=== PATIENT | male | born 1985 | race Caucasian/White ===

== ENCOUNTER 2017-10-16 20:31 | Emergency (ER) | payer MEDICAID, SELFPAY ==
[2017-10-16 20:33] VITALS: BP 120/86; PULSE 111; RESP 14; TEMP 36.5; O2SAT 98; BMI 22.9
--- NOTE | 2017-10-16 20:46 | ED.RN ---
PER PT REQUEST THIS RN CALLED PT GRANDMOTHER. THERE WAS NO ANSWER TO PHONE CALL. WILL TRY AGAIN LATER.
[2017-10-16 21:33] VITALS: BP 120/87; PULSE 91; RESP 17; O2SAT 95
[2017-10-16 22:31] VITALS: BP 115/83; PULSE 76; RESP 14; O2SAT 93
[2017-10-16 23:08] VITALS: BP 110/80; PULSE 84; RESP 20; O2SAT 97
--- NOTE | 2017-10-16 23:18 | ED.VISSUMM ---
- ER Visit Summary Date of Service: 10/16/17 Chief Complaint: Overdose History of Present Illness: The patient is a 32 M who was brought in by EMS. Medics report they were bagging the patient. He was given 1 mg of Narcan and is awake and alert. Patient admits to drug abuse. He thought he was just using meth. He does not remember if he got his drugs from a different supplier. He does have a history of heroin use but states he has not used heroin in several years. Physical Examination: Vital signs significant for slight tachycardia with heart rate of 111, otherwise normal. Patient sitting upright in bed. He will intermittently start to fall asleep during my exam but he easily awakens just to voice. Heart is slightly tachycardic and regular. Lung sounds are clear. Abdomen is soft nontender. Patient is moving all 4 extremities. Test Results: [] Emergency Department Course and Treatment: Patient was observed for 3 hours. He remained stable with no further doses of Narcan required. Respiratory rate has maintained at a normal level throughout. At this time patient is tolerating p.o. He will be given information for 180 for detox should he choose this. Treatment Plan: [] Disposition: Discharge Impression: Opioid overdose This note was generated with AllClear ID dictation software. It may contain incorrect words, spelling, and punctuation that were not noted in review of the chart prior to signing ED Disposition - Plan for ED Patient: Chief Complaint: Overdose Referrals: Care Physician,No Primary [Primary Care Provider] -
--- NOTE | 2017-10-16 23:20 | ED.DEP ---
ED Disposition - Plan for ED Patient: Disposition: Home or Assisted Living Chief Complaint: Overdose Instructions: ED Overdose Opiate Referrals: EIGHTY,ONE [STAFF PHYSICIAN] - As Needed
[2017-10-16 23:29] VITALS: BP 111/86; PULSE 98; RESP 20; O2SAT 97
--- NOTE | 2017-10-16 23:30 | ED.RN ---
PT EDUCATED THAT DRUG USE IS UNSAFE. A+OX4. PT GIVEN VERBAL AND WRITTEN D.C INSTRUCTIONS. PT VERBALIZES UNDERSTANDING. DENIES ANY FURTHER QUESTIONS. PT IV D/C AND OVERED WITH 2X2 GAUZE DRESSING AND PAPER TAPE. PT AMBULATES OUT OF DEPT WITHOUT ASSISTANCE FROM STAFF.
== END 2017-10-16 23:31 | disposition home or self-care (01) ==
PROVIDERS: Emergency Provider Emergency Medicine
DX: T40.3X1A Poisoning by methadone, accidental (unintentional), initial encounter (principal); Y92.9 Unspecified place or not applicable; Z72.0 Tobacco use
CPT/HCPCS: 99285

== ENCOUNTER 2018-09-19 15:22 | Emergency (ER) | payer SELFPAY ==
[2018-09-19 15:23] VITALS: BP 129/90; PULSE 100; RESP 18; TEMP 36.5; O2SAT 96; BMI 22.5
--- NOTE | 2018-09-19 15:31 | ED.DCSUM_ITS ---
- ER Visit Summary Date of Service: 09/19/18 Chief Complaint: [Possible drug overdose ] History of Present Illness: The patient is a 33 M [presents to the emergency department via EMS after his friends called and stated that he was not breathing. Initially on EMS arrival patient was coherent however became unresponsive and was given a milligram of Narcan after which time he immediately became responsive again. Patient was at a known drug house per EMS. Patient has used heroin in the past but he states he does not remember using anything today. Patient states that he has been feeling fatigued and tired all day. He denies recent illness although at times he is felt hot. He denies any chest pain or abdominal pain. Patient has no medical history. Patient has no prior surgical history.] Patient not suicidal or homicidal. Physical Examination: [HEENT-PERRLA, EOMI. Cranial nerves II through XII grossly intact. TMs clear. Mucous membranes moist. No adenopathy. Cardiovascular-regular rate and rhythm without murmur or ectopy Lungs-clear to auscultation, chest wall stable without crepitus or subcu emphysema Abdomen-normoactive bowel sounds, soft, nontender, no rebound or rigidity, no peritoneal signs. Extremities-intact ?4, normal range of motion, normal pulses, atraumatic] Test Results: [CBC with differential was unremarkable. Chemistries unremarkable. Alcohol toxicology screen pending however patient refused to give a urine sample. Patient is requesting discharge to home.] Patient currently does not want to go through detox. Emergency Department Course and Treatment: [Patient was observed for over an hour at this point he is requesting his discharge.] Treatment Plan: [I recommended follow-up with steps however patient left prior to getting his discharge instructions.] Disposition: [Discharged home stable condition] Impression: [Opiate overdose] This note was generated with [employer]ured [employer] dictation software. It may contain incorrect words, spelling, and punctuation that were not noted in review of the chart prior to signing ED Disposition - Plan for ED Patient: Referrals: Care Physician,No Primary [Primary Care Provider] -
[2018-09-19] MEDS: 0.9% Normal Saline 1,000 ML 1000 ML IV (15:32)
[2018-09-19 15:51] LABS: Absolute Lymphocyte Count 2.48 X10^3/ul (0.83-4.51); Absolute Neutrophil Count 3.7 X10^3/uL (2.0-7.7); Basophil# 0.03 X10^3/uL; Basophil% 0.4 % (0-1); Eosinophil# 0.11 X10^3/uL; Eosinophils% 1.5 % (0-5); Hematocrit 40.8 % (40-54); Hemoglobin 13.9 g/dl (13.0-16.5); Lymphocyte # 2.48 X10^3/ul (4.0); Lymphocyte % 34.3 % (19-41); Mean Corp Hgb Conc 34.1 g/gl (32-36); Mean Corpuscular Volume 87.9 fL (80-94); Mean Platelet Vol. 9.1 fl (6.2-12.0); Monocyte# 0.88 X10^3/uL; Monocyte% 12.2 % (0-10); Neutrophil # 3.71 X10^3/uL (2.7-7.7); Neutrophil % 51.5 % (47-70); Platelet Count 315 K/mm3 (150-450); RBC Distribution Width CV 13.2 % (11.6-14.6); RBC Distribution Width SD 42.3 fl (35.1-43.9); Red Blood Count 4.64 M/mm3 (4.6-6.2); White Blood Count 7.2 K/mm3 (4.4-11.0)
[2018-09-19 15:58] LABS: Anion Gap 3 (5-15); BUN 18 mg/dL (7-18); BUN/Creat Ratio 20.7 RATIO (10-20); Calcium,Total 8.3 mg/dL (8.5-10.1); Chloride 105 mmol/L (98-107); Creatinine, Serum 0.87 mg/dL (0.70-1.30); EST Glomerular Filtration Rate 106 mL/min (>60); Est Glom Filt Rate - Afr Amer 129 mL/min (>60); Glucose 90 mg/dL (74-106); Potassium 4.9 mmol/L (3.5-5.1); Sodium Level 138 mmol/L (136-145)
--- NOTE | 2018-09-19 16:03 | ED.RN ---
attempted to call sister, Roseanna, per pt's request. no answer at this time.
[2018-09-19 16:10] LABS: POSITIVE COUNT NO; POSITIVE DIFFERENTIAL NO; POSITIVE MORPHOLOGY NO
[2018-09-19 16:11] VITALS: RESP 16; O2SAT 99
--- NOTE | 2018-09-19 16:26 | ED.DEP ---
ED Disposition - Plan for ED Patient: Instructions: Opiate Abuse, OVERDOSE, Opiate Referrals: Care Physician,No Primary [Primary Care Provider] - Additional Instructions: Follow up with [facility] for drug rehab
--- NOTE | 2018-09-19 16:27 | ED.RN ---
friend asked for number for detox. pt cooperative at dc but left before waiting for paperwork.
== END 2018-09-19 16:30 | disposition home or self-care (01) ==
LOC: ED 16:24
PROVIDERS: Emergency Provider Emergency Medicine
DX: T40.601A Poisoning by unspecified narcotics, accidental (unintentional), initial encounter (principal); Z72.0 Tobacco use
CPT/HCPCS: 80048; 80320; 85025; 96360; 99285; G0480

== ENCOUNTER 2018-09-23 07:47 | Emergency (ER) | payer SELFPAY ==
[2018-09-23 07:48] VITALS: BP 148/81; PULSE 125; RESP 21; TEMP 36.8; O2SAT 99; BMI 23.0
--- NOTE | 2018-09-23 08:12 | ED.VIS.GEN ---
History of Present Illness Chief Complaint: Substance Abuse Informant: Patient Onset: Today Timing: Continuous Current Severity: Mild Maximum Severity: Mild Narrative: Patient is here for detox from opiates. He was seen a few days ago for an overdose from heroin, he used this morning and has minimal withdrawal symptoms. He is complaining of mild sweating, he feels slightly hot and has very few muscle aches. He has no nausea or vomiting. He has no anxiety. He has no chest pain shortness of breath headaches. Past Medical History - Allergies and Home Meds Allergies/Adverse Reactions: Allergies No Known Allergies Allergy (Verified 10/16/17 20:32) Primary Care Physician: Care Physician,No Primary [Primary Care Provider] - Prior records reviewed: Yes Past Medical History: None Smoking Status: Current every day smoker Drugs: Heroin Review of Systems General: Denies: Chills, Fever, Sweats Eyes: Reports: Diplopia. Denies: Visual changes - bilaterally ENT: Denies: Rhinorrhea, Sore throat Cardiovascular: Denies: Chest pain, Palpitations Respiratory: Denies: Dyspnea, Cough, Dyspnea on exertion Gastrointestinal: Denies: Abdominal pain, Nausea, Vomiting, Diarrhea, Melena, Hematochezia Genitourinary: Denies: Dysuria, Hematuria, Frequency Musculoskeletal: Denies: Back pain, Extremity Pain Skin: Denies: Rash, Wounds Neurological: Denies: Headache, Weakness, Numbness Allergy: Denies: Swelling of the mouth Physical Exam Vital Signs/Narrative: Vital Signs Temp Pulse Resp BP Pulse Ox 09/23/18 07:48 98.2 F 125 H 21 H 148/81 H 99 Inital Vital Signs reviewed: Yes General: Well nourished Head: Normocephalic Eyes: Perrl ENT: Moist mucous membranes Neck: Supple Cardiovascular: Regular rate, Regular rhythm, No murmurs Respiratory: No distress Abdomen: Soft, Nontender Back: Nontender, Normal Inspection Extremities: Nontender, - - Old track espinoza seen bilateral upper extremities no signs of infection Skin: Normal color, No rash Neurological: Alert, Oriented x3, Cranial nerves II-XII grossly intact Psychological: Normal affect, Normal Mood Diagnostic/Tx/Re-eval - Medical Decision Making Patient's CINA scale for withdrawal symptoms as a 5, unfortunately he does not meet criteria for detox. I discussed the patient with [facility], patient can be seen outpatient. I will discharge him with the information. ED Disposition - Plan for ED Patient: Disposition: Home or Assisted Living Diagnosis: Opiate abuse, continuous Instructions: Opiate Abuse, Narcotic Withdrawal Additional Instructions: Follow-up with [facility]: Call them, they can see later today in the outpatient office.
--- NOTE | 2018-09-23 08:27 | ED.RN ---
PT AGITATED UPON ARRIVAL. PT STATES DIDN'T WANT TO STAY FOR OPIATE DETOX UNLESS FIMATT WAS WITH HIM. [facility] IN TRIAGE AREA AND PT LEAVE UNIT THINKING [facility] LEFT HOSPITAL. [facility] RETURNED AND PT RETURNED TO PT ROOM. PHYSICIAN SAW PT AND BEGAN TO PREPARE DC. PT LEAVE UNIT AGAIN, BECAME AGITATED THAT RADHA WAS NOT IN ROOM WITH HIM. PT LEAVE PRIOR TO RECEIVING DC INSTRUCTIONS THAT INCLUDED [facility] PROGRAM INSTRUCTIONS AND REFERRAL.
== END 2018-09-23 08:27 | disposition home or self-care (01) ==
LOC: ED 08:26
PROVIDERS: Emergency Provider Emergency Medicine
DX: F11.10 Opioid abuse, uncomplicated (principal); F17.200 Nicotine dependence, unspecified, uncomplicated
CPT/HCPCS: 99282

== ENCOUNTER 2019-03-13 07:57 | Observation (INO) | payer MEDICAID, SELFPAY ==
[2019-03-13 07:58] VITALS: BP 131/103; PULSE 93; RESP 17; TEMP 36.1; O2SAT 99; BMI 23.6
--- NOTE | 2019-03-13 08:07 | EKG12_ITS ---
Test Reason : SUBSTANCE ABUSE Blood Pressure : / mmHG Vent. Rate : 095 BPM Atrial Rate : 095 BPM P-R Int : 158 ms QRS Dur : 108 ms QT Int : 362 ms P-R-T Axes : 057 055 041 degrees QTc Int : 454 ms Normal sinus rhythm Normal ECG Confirmed by YURIY FARIA, MARILIN ([id number]), commissioning editor FLAKO URIOSTEGUI ([id number]) on 03/17/2019 12:25:04 PM Referred By: FABIEN Confirmed By:MARILIN YAN MD
--- NOTE | 2019-03-13 08:08 | ED.DCSUM_ITS ---
History of Present Illness Chief Complaint: Substance Abuse Informant: Patient Onset: Today Narrative: Patient presents emergency department asking for help with his heroin addiction. Patient states he typically uses 1 g of heroin/fentanyl a day. He states he injects in the right arm. Last use was approximately 24 hours ago. He notes nausea vomiting diarrhea, chills, headache, and irritability. He denies any hallucinations. He denies any significant alcohol use. He last overdosed approximately 3 months ago. He states he is never gone through rehab but did go through withdrawals a couple months ago when he was in [facility]. He denies any pending legal issues. He denies suicidal homicidal ideation. When asked why he is looking for rehab today he states that he is just sick of it. Past Medical History - Allergies and Home Meds Allergies/Adverse Reactions: Allergies No Known Allergies Allergy (Verified 03/13/19 07:58) Primary Care Physician: Care Physician,No Primary [Primary Care Provider] - Smoking Status: Current every day smoker Review of Systems General: Reports: Chills, Malaise, Sweats. Denies: Fever Eyes: Denies: Visual changes - bilaterally, Diplopia ENT: Denies: Left ear pain, Right ear pain, Rhinorrhea, Sore throat Cardiovascular: Reports: Palpitations. Denies: Chest pain, Heart racing Respiratory: Denies: Dyspnea, Cough, Dyspnea on exertion Gastrointestinal: Reports: Nausea, Vomiting, Diarrhea. Denies: Abdominal pain, Constipation, Melena, Hematochezia Genitourinary: Denies: Dysuria, Hematuria, Frequency Musculoskeletal: Reports: Myalgias. Denies: Neck pain, Back pain, Swelling, Extremity Pain Skin: Denies: Rash, Abscess, Wounds Neurological: Denies: Headache, Weakness, Numbness Psych: Denies: Depression, Anxiety, Suicidal thoughts, Suicidal ideations Endocrine: Denies: Polyuria, Polydipsia, Heat intolerance, Cold intolerance Hematologic: Denies: Easy bruising, Easy bleeding, Lymphadenopathy Allergy: Denies: Uticaria, Swelling of the mouth, Swelling of the tongue Physical Exam Vital Signs/Narrative: Vital Signs Temp Pulse Resp BP Pulse Ox 03/13/19 07:58 97.0 F L 93 17 131/103 H 99 Inital Vital Signs reviewed: Yes General: Well nourished, Well developed, No Acute Distress Head: Normocephalic, Atraumatic Eyes: Perrl, EOMI ENT: Moist mucous membranes, No rhinorrhea Neck: Supple, Nontender Cardiovascular: Regular rate, No murmurs, Tachycardia Respiratory: No distress, CTA bilaterally, Chest nontender Abdomen: Soft, Nontender, Nondistended, Normal bowel sounds Back: Nontender, Normal Inspection Extremities: Nontender, No edema Skin: Normal color, No rash, - - Mild piloerection Neurological: Alert, Oriented x3, Cranial nerves II-XII grossly intact, Normal Strength, Normal Sensation Psychological: Normal affect, Normal Mood Diagnostic/Tx/Re-eval - EKG Initial EKG Interpretation: Sinus Rhythm - Sinus rhythm at a rate of 95 without ectopy - Medical Decision Making Basic screening labs will be obtained. Hospitalist will be consulted for admission. Dr. Isaac has accepted the patient for admission ED Disposition - Plan for ED Patient: Disposition: Acute Care [facility] Diagnosis: Opiate withdrawal Referrals: Care Physician,No Primary [Primary Care Provider] -
--- NOTE | 2019-03-13 08:10 | NURSING ---
NO OLD EKGS
[2019-03-13] MEDS: Ondansetron 4 MG/2 ML Vial IV (08:26)
[2019-03-13 08:43] LABS: Absolute Lymphocyte Count 2.36 X10^3/uL (0.83-4.51); Absolute Neutrophil Count 3.7 X10^3/uL (2.0-7.7); Basophil# 0.03 X10^3/uL; Basophil% 0.4 % (0-1); Eosinophil# 0.07 X10^3/uL; Hematocrit 45.6 % (40-54); Hemoglobin 15.3 g/dL (13.0-16.5); Lymphocyte # 2.36 X10^3/ul (4.0); Lymphocyte % 35.2 % (19-41); Mean Corp Hgb Conc 33.6 g/dL (32-36); Mean Corpuscular Hgb 29.6 pg (27.0-32.0); Mean Corpuscular Volume 88.2 fL (80-94); Mean Platelet Vol. 8.7 fl (6.2-12.0); Monocyte# 0.52 X10^3/uL; Monocyte% 7.7 % (0-10); NRBC Flagged by Analyzer 0 % (0-5); Neutrophil % 55.3 % (47-70); Platelet Count 363 K/mm3 (150-450); RBC Distribution Width CV 13.2 % (11.6-14.6); RBC Distribution Width SD 42.8 fl (35.1-43.9); Red Blood Count 5.17 M/mm3 (4.6-6.2); White Blood Count 6.7 K/mm3 (4.4-11.0)
[2019-03-13 08:45] LABS: ALB/GLOB Ratio 0.8 RATIO (0.9-2.4); AST(SGOT) 30 U/L (15-37); Alanine Aminotransfer ALT/SGPT 54 U/L (16-61); Albumin, Serum 3.5 g/dL (3.2-5.0); Alkaline Phosphatase 133 U/L (45-117); Amphetamine Urine VISTA POSITIVE (<1000 ng/mL); Anion Gap 5 (5-15); BUN 8 mg/dL (7-18); BUN/Creat Ratio 8.6 RATIO (10-20); Barbiturate Urine VISTA NEGATIVE (< 200 ng/mL); Benzodiazepine Urine VISTA NEGATIVE (< 200 ng/mL); Calcium,Total 8.3 mg/dL (8.5-10.1); Chloride 107 mmol/L (98-107); Cocaine Urine VISTA NEGATIVE (< 300 ng/mL); Creatinine, Serum 0.93 mg/dL (0.70-1.30); EST Glomerular Filtration Rate 98 mL/min (>60); Ecstacy Urine VISTA NEGATIVE (< 500 ng/mL); Est Glom Filt Rate - Afr Amer 118 mL/min (>60); Estimated Creatinine Clearance 118.08 ml/min; Globulin 4.6 g/dL (2.2-4.2); Glucose 108 mg/dL (74-106); Methadone Urine VISTA NEGATIVE (< 300 ng/mL); PCP Urine VISTA NEGATIVE (< 25 ng/mL); Potassium 3.9 mmol/L (3.5-5.1); Protein, Total 8.1 g/dL (6.4-8.2); Sodium Level 140 mmol/L (136-145); THC Urine VISTA NEGATIVE (< 50 ng/mL); Vista UDS pH Range 5
--- NOTE | 2019-03-13 08:56 | NURSING ---
DR DOMINICK CONN
--- NOTE | 2019-03-13 09:01 | NURSING ---
MED SURG DOMINICK HEROIN WITHDRAWAL
[2019-03-13 09:19] LABS: Alcohol, Blood (Medical)-Serum < 3.0 mg/dL
[2019-03-13 09:26] LABS: GGTP 21 U/L (15-85)
[2019-03-13 09:27] VITALS: BMI 22.6
[2019-03-13 09:36] VITALS: BP 114/74; PULSE 94; RESP 18; TEMP 36.7; O2SAT 100
[2019-03-13 10:27] LABS: Lipase 139 U/L (73-393)
[2019-03-13 10:30] LABS: Prothrombin Time (Protime)PT. 12.7 SECONDS (11.7-14.9)
[2019-03-13] MEDS: Acetaminophen 500 MG Tablet PO (10:31)
[2019-03-13] MEDS: Buprenorphine HCl 2 MG TAB.SUBL SL ×2 (10:31→18:42)
[2019-03-13] MEDS: chlordiazePOXIDE 25 MG Capsule PO ×4 (10:35→22:51)
[2019-03-13 11:14] LABS: Mucous, Urine 0 SEEN /hpf (<or=2+); Red Blood Cells-Urine 0 SEEN /hpf (0-5); Squamous Epithelial Cells - UA 0 SEEN /hpf (0-5); White Blood Cells 0 SEEN /hpf (0-5)
[2019-03-13 11:27] LABS: Color, Urine Yellow (Yellow); Glucose, Dipstick Normal (Normal); Ketone-Dipstick Negative (Negative); Leukocyte Esterase-Dipstick Negative /ul (Negative); Nitrite-Dipstick Negative (Negative); Occult Blood-Urine Negative /ul (Negative); Protein-Dipstick Negative (Negative); Specific Gravity, Urine 1.015 (1.002-1.030); Urine Bilirubin Dipstick Negative (Negative); Urine Clarity Sl. Cloudy (Clear); Urine Urobilinogen Normal (Normal)
[2019-03-13 11:35] LABS: Bacteria 1+ /hpf (None Seen); Calcium Oxalate Crystals Ur 1+ /hpf (<or=2+)
--- NOTE | 2019-03-13 12:31 | HP.PCM_ITS ---
Problem List (1) Polysubstance use Status: Acute (2) Acute opioid withdrawal Status: Acute History of Present Illness Date of Admission: 03/13/19 Chief Complaint: Opioid withdrawal symptoms The patient is a 33 year old M with history of fentanyl handling IV use about 1 g daily for last 4 years with remission about 1 year came to ER for detoxification. Patient wants medical treatment for stabilization. Patient also has history of smoking cigarettes 1 to 2 cigarettes/day, alcohol beers occasionally on weekends on monthly basis. Patient also injects methamphetamine once a week. He is having anxiety, restlessness and tremors and shaking. Denies nausea, vomiting, abdominal pain. Patient does not have any seizures or hallucinations or delusions. [] Past Medical History Allergies No Known Allergies Allergy (Verified 03/13/19 07:58) Home Medications: Ambulatory Orders Medication Instructions Recorded NK 10/16/17 Smoking Status: Current every day smoker Tobacco Use: Cigarettes Alcohol: Occasional - Appears Drugs: Heroin - *Family History Paternal History Items: No pertinent history Review of Systems Constitutional: Denies: Chills, Fever, Weight Change HEENT: Denies: Head Aches, Sinus Congestion, Sinus Drainage Cardiovascular: Denies: Chest Pain, Palpitations Respiratory: Denies: Cough, Shortness of breath at rest, Sputum production Gastrointestinal: Denies: Abdominal Pain, Nausea, Vomiting Genitourinary: Denies: Dysuria, Frequency, Hematuria Musculoskeletal: Denies: Joint Pain, Joint Tenderness Skin: Denies: Rash, Wounds Neurological: Reports: Balance problems, Incoordination. Denies: Focal weakness, Numbness, Tingling Psychiatric: Reports: Anxiety. Denies: Depression, Homicidal Ideations, Suicidal Ideations Hematologic/ Lymphatic: Denies: Easy Bruising, Easy Bleeding VTE Information - Inpt Only VTE Present on Admission: No VTE Mechan Device Prophylaxis: None VTE Pharm Prophylaxis ordered?: No Reason prophylaxis not ordered:: Procedure Not Indicated Patient Problems: Active and Suspected Problems Polysubstance use (Acute) Acute opioid withdrawal (Acute) - Physical Exam Vitals/I&O's: Vital Signs Temp Pulse Resp BP Pulse Ox 98.1 F 94 18 114/74 100 03/13/19 09:36 03/13/19 09:36 03/13/19 09:36 03/13/19 09:36 03/13/19 09:36 Oxygen Delivery Method Room Air Weight: 162 lb 3.2 oz Body Mass Index (BMI) 22.6 General: Alert, Oriented x3, Cooperative HEENT: Atraumatic, PERRLA, EOMI, Normocephalic Neck: Supple, No JVD, Negative Carotid Bruits Lungs: Clear to auscultation, Normal air movement, No rhonchi, No wheeze, No rales Cardiovascular: Regular rate, Regular Rhythm, Normal S1, Normal S2, No murmurs Abdomen: Bowel Sounds Present, Soft, Non Tender, Non-Distended Extremities: No edema, Capillary Refill Less than 3 Seconds Skin: No rashes, No breakdown Musculoskeletal: No Tenderness to Palpation of Joints or Extremities Neurological: Cranial nerves II-XII grossly intact, Neuro grossly intact, Unsteady Gait, - - Tremors and second secondary to drug withdrawal Psych/Mental Status: Normal Affect, Appropriate Laboratory Results 03/13/19 08:15: WBC 6.7, RBC 5.17, Hgb 15.3, Hct 45.6, MCV 88.2, MCH 29.6, MCHC 33.6, RDW Std Deviation 42.8, RDW Coeff of Yung 13.2, Plt Count 363, MPV 8.7, Immature Gran % (Auto) 0.400, Neut % (Auto) 55.3, Lymph % (Auto) 35.2, [place] % (Auto) 7.7, Eos % (Auto) 1.0, Baso % (Auto) 0.4, Absolute Neuts (auto) 3.7, Absolute Lymphs (auto) 2.36, Nucleated RBC % 0 03/13/19 08:15: Sodium 140, Potassium 3.9, Chloride 107, Carbon Dioxide 28.0, Anion Gap 5, BUN 8, Creatinine 0.93, Estim Creat Clear Calc 118.08, Est GFR ( MDRD) Af Amer 118, Est GFR (MDRD) Non-Af 98, BUN/Creatinine Ratio 8.6 L, Glucose 108 H, Calcium 8.3 L, Total Bilirubin 0.50, AST 30, ALT 54, Alkaline Phosphatase 133 H, Total Protein 8.1, Albumin 3.5, Globulin 4.6 H, Albumin/Globulin Ratio 0.8 L 03/13/19 08:15: Ethyl Alcohol < 3.0 03/13/19 08:15: Urine Opiates Screen NEGATIVE, Urine Methadone Screen NEGATIVE, Ur Barbiturates Screen NEGATIVE, Ur Phencyclidine Scrn NEGATIVE, Ur Amphetamines Screen POSITIVE H, U Methamphetamin-MDMA NEGATIVE, U Benzodiazepines Scrn NEGATIVE, Urine Cocaine Screen NEGATIVE, U Cannabinoids Screen NEGATIVE, Ur Drug Screen Comment 03/13/19 08:15: GGT 21 03/13/19 08:15: PT 12.7, INR 1.0 03/13/19 08:15: Lipase 139 03/13/19 11:10: Urine Color Yellow, Urine Clarity Sl. Cloudy, Urine pH 6.0, Ur Specific [place] 1.015, Urine Protein Negative, Urine Glucose (UA) Normal, Urine Ketones Negative, Urine Occult Blood Negative, Urine Nitrite Negative, Urine Bilirubin Negative, Urine Urobilinogen Normal, Ur Leukocyte Esterase Negative, Urine RBC 0 SEEN, Urine WBC 0 SEEN, Ur Squamous Epith Cells 0 SEEN, Calcium Oxalate Crystal 1+, Urine Bacteria 1+, Urine Mucus 0 SEEN Current Medications Acetaminophen (Tylenol) 500 mg PO Q4H PRN PRN PRN Reason: Temp > 100.4 F Last Admin: 03/13/19 10:31 Dose: 500 mg Documented by: Al Hydroxide/Mg Hydroxide (Mylanta Ii) 30 ml PO Q6H PRN PRN PRN Reason: dyspesia Bisacodyl (Dulcolax) 10 mg RECTAL DAILY PRN PRN Reason: Constipation Buprenorphine HCl (Buprenorphine Hcl) 4 mg SL Q8H TYRONE; Taper Stop: 03/16/19 14:59 Last Admin: 03/13/19 10:31 Dose: 4 mg Documented by: Chlordiazepoxide (Librium) 25 mg PO Q6H PRN PRN PRN Reason: Moderate-Severe Anxiety Chlordiazepoxide (Librium) 25 mg PO Q4H TYRONE Stop: 03/14/19 07:01 Last Admin: 03/13/19 10:35 Dose: 25 mg Documented by: Clonidine (Catapres) 0.1 mg PO Q2H PRN PRN PRN Reason: Hot/Cold Sweats or Anxiety Dicyclomine HCl (Bentyl) 20 mg PO Q6H PRN PRN PRN Reason: Abdomnial Discomfort Hydroxyzine HCl (Vistaril Vial) 50 mg IM Q6H PRN PRN PRN Reason: Breakthrough Anxiety Hydroxyzine Pamoate (Vistaril Pamoate Capsule) 50 mg PO Q6H PRN PRN PRN Reason: Mild Anxiety Ibuprofen (Motrin) 600 mg PO Q8H PRN PRN PRN Reason: Pain Score 1-5/10 Loperamide HCl (Imodium) 2 - 4 mg PO UD PRN PRN Reason: LOOSE STOOLS Methocarbamol (Methocarbamol) 750 mg PO Q6H PRN PRN PRN Reason: Muscle Aches Nicotine (Nicoderm Cq (Pbkc)) 21 mg TRANSDERM. DAILY [facility] Last Admin: 03/13/19 10:35 Dose: Not Given Documented by: Ondansetron HCl (Zofran Odt) 4 mg PO Q6H PRN PRN PRN Reason: NAUSEA Pramipexole Dihydrochloride (Mirapex) 0.25 mg PO Q12H PRN PRN PRN Reason: Restless Legs Senna (Senokot) 1 tablet PO QHS PRN PRN Reason: Constipation Sodium Chloride () 10 - 40 ml IV UD PRN PRN Reason: SALINE FLUSH Trazodone HCl (Desyrel) 50 mg PO QHS [facility] Assessment/Plan All Active Problems Polysubstance use (Acute) Acute opioid withdrawal (Acute) The patient is a 33 year old M with history of fentanyl handling IV use about 1 g daily for last 4 years with remission about 1 year came to ER for detoxification. Patient wants medical treatment for stabilization of opioids withdrawal syndrome. 1. Acute opioid withdrawal: Patient is started on medication regimen for acute opioid withdrawal with Librium scheduled and taper. Patient will be on buprenorphine. Patient is on clonidine, pramipexole, trazodone and hydroxyzine. Labs reviewed. Alkaline phosphatase 133 probably from muscle/bone origin as patient has shaking. GGT normal. Alcohol level is negative. INR normal. 2. Polysubstance use and dependence: Patient uses both fentanyl and heroin. He also uses methamphetamine once a week. Sometimes cigarettes smoking. On nicotine patch. Patient does not know the status of hepatitis B C or HIV. Will need outpatient evaluation and testing. 8. DVT prophylaxis: Low risk early ambulation encouraged. Prophylaxis not indicated. [] Laboratory Results 03/13/19 08:15: WBC 6.7, RBC 5.17, Hgb 15.3, Hct 45.6, MCV 88.2, MCH 29.6, MCHC 33.6, RDW Std Deviation 42.8, RDW Coeff of Yung 13.2, Plt Count 363, MPV 8.7, Immature Gran % (Auto) 0.400, Neut % (Auto) 55.3, Lymph % (Auto) 35.2, [place] % (Auto) 7.7, Eos % (Auto) 1.0, Baso % (Auto) 0.4, Absolute Neuts (auto) 3.7, Absolute Lymphs (auto) 2.36, Nucleated RBC % 0 03/13/19 08:15: Sodium 140, Potassium 3.9, Chloride 107, Carbon Dioxide 28.0, Anion Gap 5, BUN 8, Creatinine 0.93, Estim Creat Clear Calc 118.08, Est GFR (MDRD) Af Amer 118, Est GFR (MDRD) Non-Af 98, BUN/Creatinine Ratio 8.6 L, Glucose 108 H, Calcium 8.3 L, Total Bilirubin 0.50, AST 30, ALT 54, Alkaline Phosphatase 133 H, Total Protein 8.1, Albumin 3.5, Globulin 4.6 H, Albumin/Globulin Ratio 0.8 L 03/13/19 08:15: Ethyl Alcohol < 3.0 03/13/19 08:15: Urine Opiates Screen NEGATIVE, Urine Methadone Screen NEGATIVE, Ur Barbiturates Screen NEGATIVE, Ur Phencyclidine Scrn NEGATIVE, Ur Amphetamines Screen POSITIVE H, U Methamphetamin-MDMA NEGATIVE, U Benzodiazepines Scrn NEGATIVE, Urine Cocaine Screen NEGATIVE, U Cannabinoids Screen NEGATIVE, Ur Drug Screen Comment 03/13/19 08:15: GGT 21 03/13/19 08:15: PT 12.7, INR 1.0 03/13/19 08:15: Lipase 139 03/13/19 11:10: Urine Color Yellow, Urine Clarity Sl. Cloudy, Urine pH 6.0, Ur Specific [place] 1.015, Urine Protein Negative, Urine Glucose (UA) Normal, Urine Ketones Negative, Urine Occult Blood Negative, Urine Nitrite Negative, Urine Bilirubin Negative, Urine Urobilinogen Normal, Ur Leukocyte Esterase Negative, Urine RBC 0 SEEN, Urine WBC 0 SEEN, Ur Squamous Epith Cells 0 SEEN, Calcium Oxalate Crystal 1+, Urine Bacteria 1+, Urine Mucus 0 SEEN Code Visit Inpatient E&M: 97066 Init Hosp L3
[2019-03-13 14:35] VITALS: BP 127/73; PULSE 83; RESP 16; TEMP 37.1; O2SAT 98
--- NOTE | 2019-03-13 15:11 | CHAPLAIN ---
Type of Pastoral Visit _x__ Initial Visit ___ Follow-up Visit ___ On-call Visit ___ General Patient Visit ___ Spiritual Assessment ___ Family Conference ___ Bereavement ___ Rapid Response ___ Code Blue ___ Other (describe below) Pastoral Care Referral From _x__ Patient ___ Family ___ Nurse ___ Physician ___ Refrigeration Plant Cork Insulator ___ Class A Lineman ___ Other (describe below) Sacrament/Intervention _x__ Active listening ___ Anointing ___ Druze ___ Bereavement ___ Communion _x__ Catie exploration ___ _x__ Life review _x__ Prayer ___ Reconciliation ___ Sacrament of Sick _x__ Supportive presence ___ Wedding ___ Other (describe below) Pastoral Comments patient states that he wants rehab and is willing to go and stay as long as necessary and then he will return to [place] where family resides; pt says he has no family in [place] and no support here; pt states that he used to go to voodoo weekly and that he wants to reconnect with his catie in [place]; pt asks for referrals to local rehab that would encourage his catie journey; gave a list of options for pt; notified SW about this visit for her follow up later
[2019-03-13 20:46] VITALS: BP 109/72; PULSE 89; RESP 18; TEMP 37; O2SAT 97
[2019-03-13] MEDS: traZODone 50 MG Tablet PO (22:51)
[2019-03-14] MEDS: chlordiazePOXIDE 25 MG Capsule PO ×2 (03:09→07:03)
[2019-03-14] MEDS: Buprenorphine HCl 2 MG TAB.SUBL SL ×3 (03:09→18:37)
[2019-03-14 03:12] VITALS: BP 96/62; PULSE 100; RESP 16; TEMP 36.4; O2SAT 95
--- NOTE | 2019-03-14 10:28 | CASEMGMT ---
Social Work Note Pt is at [facility] for Heroin Withdrawal. SW met with pt and introduced self and role at [facility]. Pt is alert and orientated x3. Pt states that he would like to look into rehabilitation options at discharge but is not sure if he wants inpatient or outpatient treatment. SW provided pt with list of rehabilitation options, including [facility] based options as per chaplains conversation with pt pt is interested in [facility] based rehabilitation. SW encouraged pt to review packet and when he decides if he wants inpatient or outpatient to call number associated with agency. Pt states understanding, states he will review list. SW to remain available to assist if needed. Gaby Maldonado COMPUTER SECURITY COORDINATOR, OFFICE SERVICES CLERK
[2019-03-14 10:35] VITALS: BP 100/68; PULSE 93; RESP 14; TEMP 36.6; O2SAT 99
[2019-03-14] MEDS: Pramipexole Di-HCl 0.25 MG Tablet PO (10:40)
[2019-03-14] MEDS: Senna Tablet 1 TABLET PO (10:40)
[2019-03-14] MEDS: hydrOXYzine PAM 25 MG Capsule 50 MG PO (10:40)
--- NOTE | 2019-03-14 14:14 | PN_ITS ---
Patient Problems: Active and Suspected Problems Polysubstance use (Acute) Acute opioid withdrawal (Acute) Reason for Visit: Patient symptoms of withdrawals are better. Denies hallucinations or seizures. Vitals/I&O's: Vital Signs Temp Pulse Resp BP Pulse Ox 97.9 F 93 14 100/68 99 03/14/19 10:35 03/14/19 10:35 03/14/19 10:35 03/14/19 10:35 03/14/19 10:35 Oxygen Delivery Method Room Air Weight: 162 lb 3.2 oz Body Mass Index (BMI) 22.6 Intake and Output for Last 24 Hours 03/12/19 03/13/19 03/14/19 23:59 23:59 23:59 Intake Total 1100 / 1100 474 / 474 Balance 1100 / 1100 474 / 474 General: Alert, Oriented x3, Cooperative HEENT: Atraumatic, PERRLA, EOMI, Normocephalic Neck: Supple, No JVD, Negative Carotid Bruits Lungs: Clear to auscultation, Normal air movement, No rhonchi, No wheeze, No rales Cardiovascular: Regular rate, Regular Rhythm, Normal S1, Normal S2, No murmurs Abdomen: Bowel Sounds Present, Soft, Non Tender, Non-Distended Extremities: No edema, Capillary Refill Less than 3 Seconds Skin: No rashes, No breakdown Musculoskeletal: No Tenderness to Palpation of Joints or Extremities Neurological: Cranial nerves II-XII grossly intact Psych/Mental Status: Normal Affect, Appropriate Current Medications Acetaminophen (Tylenol) 500 mg PO Q4H PRN PRN PRN Reason: Temp > 100.4 F Last Admin: 03/13/19 10:31 Dose: 500 mg Documented by: Al Hydroxide/Mg Hydroxide (Mylanta Ii) 30 ml PO Q6H PRN PRN PRN Reason: dyspesia Bisacodyl (Dulcolax) 10 mg RECTAL DAILY PRN PRN Reason: Constipation Buprenorphine HCl (Buprenorphine Hcl) 2 mg SL Q8H COUNT INCLUDES THE [facility]; Taper Stop: 03/16/19 14:59 Last Admin: 03/14/19 10:40 Dose: 2 mg Documented by: Chlordiazepoxide (Librium) 25 mg PO Q6H PRN PRN PRN Reason: Moderate-Severe Anxiety Clonidine (Catapres) 0.1 mg PO Q2H PRN PRN PRN Reason: Hot/Cold Sweats or Anxiety Dicyclomine HCl (Bentyl) 20 mg PO Q6H PRN PRN PRN Reason: Abdomnial Discomfort Hydroxyzine HCl (Vistaril Vial) 50 mg IM Q6H PRN PRN PRN Reason: Breakthrough Anxiety Hydroxyzine Pamoate (Vistaril Pamoate Capsule) 50 mg PO Q6H PRN PRN PRN Reason: Mild Anxiety Last Admin: 03/14/19 10:40 Dose: 50 mg Documented by: Ibuprofen (Motrin) 600 mg PO Q8H PRN PRN PRN Reason: Pain Score 1-5/10 Loperamide HCl (Imodium) 2 - 4 mg PO UD PRN PRN Reason: LOOSE STOOLS Methocarbamol (Methocarbamol) 750 mg PO Q6H PRN PRN PRN Reason: Muscle Aches Nicotine (Nicoderm Cq (Pbkc)) 21 mg TRANSDERM. DAILY COUNT INCLUDES THE [facility] Last Admin: 03/14/19 10:40 Dose: 21 mg Documented by: Ondansetron HCl (Zofran Odt) 4 mg PO Q6H PRN PRN PRN Reason: NAUSEA Pramipexole Dihydrochloride (Mirapex) 0.25 mg PO Q12H PRN PRN PRN Reason: Restless Legs Last Admin: 03/14/19 10:40 Dose: 0.25 mg Documented by: Senna (Senokot) 1 tablet PO QHS PRN PRN Reason: Constipation Last Admin: 03/14/19 10:40 Dose: 1 tablet Documented by: Sodium Chloride () 10 - 40 ml IV UD PRN PRN Reason: SALINE FLUSH Trazodone HCl (Desyrel) 50 mg PO QHS COUNT INCLUDES THE [facility] Last Admin: 03/13/19 22:51 Dose: 50 mg Documented by: STROKE Vital Signs/Narrative: Vital Signs Temp Pulse Resp BP Pulse Ox 03/14/19 10:35 97.9 F 93 14 100/68 99 Medical Necessity - Tobacco Use Smoking Status: Current every day smoker Tobacco Use: Cigarettes Assessment/Plan All Active Problems Polysubstance use (Acute) Acute opioid withdrawal (Acute) The patient is a 33 year old M with history of fentanyl handling IV use about 1 g daily for last 4 years with remission about 1 year came to ER for detoxification. Patient wants medical treatment for stabilization of opioids withdrawal syndrome. 1. Acute opioid withdrawal: Patient is started on medication regimen for acute opioid withdrawal with Librium scheduled and taper. Patient will be on buprenorphine. Patient is on clonidine, pramipexole, trazodone and hydroxyzine. Labs reviewed. Alkaline phosphatase 133 probably from muscle/bone origin as patient has shaking. GGT normal. Alcohol level is negative. INR normal. 03/14/2019: Patient symptom control is much better. 2. Polysubstance use and dependence: Patient uses both fentanyl and heroin. He also uses methamphetamine once a week. Sometimes cigarettes smoking. On nicotine patch. Patient does not know the status of hepatitis B C or HIV. Will need outpatient evaluation and testing. Tox positive of amphetamine. 3. DVT prophylaxis: Low risk early ambulation encouraged. Prophylaxis not indicated. [] Laboratory Results 03/13/19 08:15: WBC 6.7, RBC 5.17, Hgb 15.3, Hct 45.6, MCV 88.2, MCH 29.6, MCHC 33.6, RDW Std Deviation 42.8, RDW Coeff of Yung 13.2, Plt Count 363, MPV 8.7, Immature Gran % (Auto) 0.400, Neut % (Auto) 55.3, Lymph % (Auto) 35.2, [place] % (Auto) 7.7, Eos % (Auto) 1.0, Baso % (Auto) 0.4, Absolute Neuts (auto) 3.7, Absolute Lymphs (auto) 2.36, Nucleated RBC % 0 03/13/19 08:15: Sodium 140, Potassium 3.9, Chloride 107, Carbon Dioxide 28.0, Anion Gap 5, BUN 8, Creatinine 0.93, Estim Creat Clear Calc 118.08, Est GFR (MDRD) Af Amer 118, Est GFR (MDRD) Non-Af 98, BUN/Creatinine Ratio 8.6 L, Glucose 108 H, Calcium 8.3 L, Total Bilirubin 0.50, AST 30, ALT 54, Alkaline Phosphatase 133 H, Total Protein 8.1, Albumin 3.5, Globulin 4.6 H, Albumin/Globulin Ratio 0.8 L 03/13/19 08:15: Ethyl Alcohol < 3.0 03/13/19 08:15: Urine Opiates Screen NEGATIVE, Urine Methadone Screen NEGATIVE, Ur Barbiturates Screen NEGATIVE, Ur Phencyclidine Scrn NEGATIVE, Ur Amphetamines Screen POSITIVE H, U Methamphetamin-MDMA NEGATIVE, U Benzodiazepines Scrn NEGATIVE, Urine Cocaine Screen NEGATIVE, U Cannabinoids Screen NEGATIVE, Ur Drug Screen Comment 03/13/19 08:15: GGT 21 03/13/19 08:15: PT 12.7, INR 1.0 03/13/19 08:15: Lipase 139 03/13/19 11:10: Urine Color Yellow, Urine Clarity Sl. Cloudy, Urine pH 6.0, Ur Specific [place] 1.015, Urine Protein Negative, Urine Glucose (UA) Normal, Urine Ketones Negative, Urine Occult Blood Negative, Urine Nitrite Negative, Urine Bilirubin Negative, Urine Urobilinogen Normal, Ur Leukocyte Esterase Negative, Urine RBC 0 SEEN, Urine WBC 0 SEEN, Ur Squamous Epith Cells 0 SEEN, Calcium Oxalate Crystal 1+, Urine Bacteria 1+, Urine Mucus 0 SEEN Code Visit Inpatient E&M: 80193 Subs Hosp L2
[2019-03-14 15:15] VITALS: BP 115/75; PULSE 87; RESP 14; TEMP 36.8; O2SAT 97
[2019-03-14] MEDS: Ibuprofen 600 MG Tablet PO (15:16)
--- NOTE | 2019-03-14 16:47 | CHAPLAIN ---
Type of Pastoral Visit ___ Initial Visit _x__ Follow-up Visit ___ On-call Visit ___ General Patient Visit ___ Spiritual Assessment ___ Family Conference ___ Bereavement ___ Rapid Response ___ Code Blue ___ Other (describe below) Pastoral Care Referral From _x__ Patient ___ Family ___ Nurse ___ Physician ___ Hvac Engineer ___ Mobile Application Tester ___ Other (describe below) Sacrament/Intervention _x__ Active listening ___ Anointing ___ Pentecostalism ___ Bereavement ___ Communion ___ Catie exploration ___ ___ Life review _x__ Prayer ___ Reconciliation ___ Sacrament of Sick _x__ Supportive presence ___ Wedding ___ Other (describe below) Pastoral Comments patient had been sleeping and realized that it was getting late into afternoon and that he needed to call for rehab options; sat with pt as he talked through his options and made actual calls to three places; he may not be able to be placed into Sunday but states that he has a plan for one night in [employer] if needed; pt is also relying on a sister out of [place] that is making calls to insurance and rehab facilities; patient welcomes presence of label fuser tender for support and for prayers
[2019-03-14] MEDS: traZODone 50 MG Tablet PO (21:19)
[2019-03-14 21:20] VITALS: BP 118/75; PULSE 86; RESP 16; TEMP 36.5; O2SAT 97
[2019-03-15] MEDS: Buprenorphine HCl 2 MG TAB.SUBL SL ×2 (02:01→15:20)
[2019-03-15 02:02] VITALS: BP 106/65; PULSE 88; RESP 16; TEMP 36.4; O2SAT 95
[2019-03-15 10:38] VITALS: BP 107/66; PULSE 90; RESP 18; TEMP 36.7; O2SAT 97
[2019-03-15] MEDS: chlordiazePOXIDE 25 MG Capsule PO (10:45)
--- NOTE | 2019-03-15 11:58 | PCM.PN.HOSP ---
Patient Problems: Active and Suspected Problems Polysubstance use (Acute) Acute opioid withdrawal (Acute) Reason for Visit: Heroin withdrawal syndrome Objective: Withdrawal symptoms are well controlled. No restlessness. No diaphoresis nausea, nausea or vomiting. Vitals/I&O's: Vital Signs Temp Pulse Resp BP Pulse Ox 98.0 F 90 18 107/66 97 03/15/19 10:38 03/15/19 10:38 03/15/19 10:38 03/15/19 10:38 03/15/19 10:38 Oxygen Delivery Method Room Air Weight: 162 lb 3.2 oz Body Mass Index (BMI) 22.6 Intake and Output for Last 24 Hours 03/13/19 03/14/19 03/15/19 23:59 23:59 23:59 Intake Total 1100 / 1100 824 / 824 Balance 1100 / 1100 824 / 824 General: Alert, Oriented x3, Cooperative HEENT: Atraumatic, PERRLA, EOMI, Normocephalic Neck: Supple, No JVD, Negative Carotid Bruits Lungs: Clear to auscultation, Normal air movement, No rhonchi, No wheeze, No rales Cardiovascular: Regular rate, No murmurs Abdomen: Bowel Sounds Present, Soft, Non Tender, Non-Distended Extremities: No edema, Capillary Refill Less than 3 Seconds Skin: No rashes, No breakdown Musculoskeletal: No Tenderness to Palpation of Joints or Extremities Neurological: Cranial nerves II-XII grossly intact, Deep Tendon Reflexes 2+/4 and Symmetrical, Neuro grossly intact Psych/Mental Status: Normal Affect, Appropriate Current Medications Acetaminophen (Tylenol) 500 mg PO Q4H PRN PRN PRN Reason: Temp > 100.4 F Last Admin: 03/13/19 10:31 Dose: 500 mg Documented by: Al Hydroxide/Mg Hydroxide (Mylanta Ii) 30 ml PO Q6H PRN PRN PRN Reason: dyspesia Bisacodyl (Dulcolax) 10 mg RECTAL DAILY PRN PRN Reason: Constipation Buprenorphine HCl (Buprenorphine Hcl) 2 mg SL Q12H TYRONE; Taper Stop: 03/16/19 14:59 Last Admin: 03/15/19 02:01 Dose: 2 mg Documented by: Chlordiazepoxide (Librium) 25 mg PO Q6H PRN PRN PRN Reason: Moderate-Severe Anxiety Last Admin: 03/15/19 10:45 Dose: 25 mg Documented by: Clonidine (Catapres) 0.1 mg PO Q2H PRN PRN PRN Reason: Hot/Cold Sweats or Anxiety Dicyclomine HCl (Bentyl) 20 mg PO Q6H PRN PRN PRN Reason: Abdomnial Discomfort Hydroxyzine HCl (Vistaril Vial) 50 mg IM Q6H PRN PRN PRN Reason: Breakthrough Anxiety Hydroxyzine Pamoate (Vistaril Pamoate Capsule) 50 mg PO Q6H PRN PRN PRN Reason: Mild Anxiety Last Admin: 03/14/19 10:40 Dose: 50 mg Documented by: Ibuprofen (Motrin) 600 mg PO Q8H PRN PRN PRN Reason: Pain Score 1-5/10 Last Admin: 03/14/19 15:16 Dose: 600 mg Documented by: Loperamide HCl (Imodium) 2 - 4 mg PO UD PRN PRN Reason: LOOSE STOOLS Methocarbamol (Methocarbamol) 750 mg PO Q6H PRN PRN PRN Reason: Muscle Aches Nicotine (Nicoderm Cq (Pbkc)) 21 mg TRANSDERM. DAILY TYRONE Last Admin: 03/15/19 10:40 Dose: 21 mg Documented by: Ondansetron HCl (Zofran Odt) 4 mg PO Q6H PRN PRN PRN Reason: NAUSEA Pramipexole Dihydrochloride (Mirapex) 0.25 mg PO Q12H PRN PRN PRN Reason: Restless Legs Last Admin: 03/14/19 10:40 Dose: 0.25 mg Documented by: Senna (Senokot) 1 tablet PO QHS PRN PRN Reason: Constipation Last Admin: 03/14/19 10:40 Dose: 1 tablet Documented by: Sodium Chloride () 10 - 40 ml IV UD PRN PRN Reason: SALINE FLUSH Trazodone HCl (Desyrel) 50 mg PO QHS TYRONE Last Admin: 03/14/19 21:19 Dose: 50 mg Documented by: STROKE Vital Signs/Narrative: Vital Signs Temp Pulse Resp BP Pulse Ox 03/15/19 10:38 98.0 F 90 18 107/66 97 Medical Necessity - Tobacco Use Smoking Status: Current every day smoker Tobacco Use: Cigarettes Assessment/Plan All Active Problems Polysubstance use (Acute) Acute opioid withdrawal (Acute) The patient is a 33 year old M with history of fentanyl handling IV use about 1 g daily for last 4 years with remission about 1 year came to ER for detoxification. Patient wants medical treatment for stabilization of opioids withdrawal syndrome. 1. Acute opioid withdrawal: Patient is started on medication regimen for acute opioid withdrawal with Librium scheduled and taper. Patient will be on buprenorphine. Patient is on clonidine, pramipexole, trazodone and hydroxyzine. Labs reviewed. Alkaline phosphatase 133 probably from muscle/bone origin as patient has shaking. GGT normal. Alcohol level is negative. INR normal. 03/14/2019: Patient symptom control is much better. 03/15/2019: Denies any new complaint. Anxiety is well controlled. 2. Polysubstance use and dependence: Patient uses both fentanyl and heroin. He also uses methamphetamine once a week. Sometimes cigarettes smoking. On nicotine patch. Patient does not know the status of hepatitis B C or HIV. Will need outpatient evaluation and testing. Tox positive of amphetamine. 3. DVT prophylaxis: Low risk early ambulation encouraged. Prophylaxis not indicated. [ Anticipate discharge tomorrow a.m. on 430-day of admission ] Laboratory Results 03/13/19 08:15: WBC 6.7, RBC 5.17, Hgb 15.3, Hct 45.6, MCV 88.2, MCH 29.6, MCHC 33.6, RDW Std Deviation 42.8, RDW Coeff of Yung 13.2, Plt Count 363, MPV 8.7, Immature Gran % (Auto) 0.400, Neut % (Auto) 55.3, Lymph % (Auto) 35.2, [place] % (Auto) 7.7, Eos % (Auto) 1.0, Baso % (Auto) 0.4, Absolute Neuts (auto) 3.7, Absolute Lymphs (auto) 2.36, Nucleated RBC % 0 03/13/19 08:15: Sodium 140, Potassium 3.9, Chloride 107, Carbon Dioxide 28.0, Anion Gap 5, BUN 8, Creatinine 0.93, Estim Creat Clear Calc 118.08, Est GFR (MDRD) Af Amer 118, Est GFR (MDRD) Non-Af 98, BUN/Creatinine Ratio 8.6 L, Glucose 108 H, Calcium 8.3 L, Total Bilirubin 0.50, AST 30, ALT 54, Alkaline Phosphatase 133 H, Total Protein 8.1, Albumin 3.5, Globulin 4.6 H, Albumin/Globulin Ratio 0.8 L 03/13/19 08:15: Ethyl Alcohol < 3.0 03/13/19 08:15: Urine Opiates Screen NEGATIVE, Urine Methadone Screen NEGATIVE, Ur Barbiturates Screen NEGATIVE, Ur Phencyclidine Scrn NEGATIVE, Ur Amphetamines Screen POSITIVE H, U Methamphetamin-MDMA NEGATIVE, U Benzodiazepines Scrn NEGATIVE, Urine Cocaine Screen NEGATIVE, U Cannabinoids Screen NEGATIVE, Ur Drug Screen Comment 03/13/19 08:15: GGT 21 03/13/19 08:15: PT 12.7, INR 1.0 03/13/19 08:15: Lipase 139 03/13/19 11:10: Urine Color Yellow, Urine Clarity Sl. Cloudy, Urine pH 6.0, Ur Specific [place] 1.015, Urine Protein Negative, Urine Glucose (UA) Normal, Urine Ketones Negative, Urine Occult Blood Negative, Urine Nitrite Negative, Urine Bilirubin Negative, Urine Urobilinogen Normal, Ur Leukocyte Esterase Negative, Urine RBC 0 SEEN, Urine WBC 0 SEEN, Ur Squamous Epith Cells 0 SEEN, Calcium Oxalate Crystal 1+, Urine Bacteria 1+, Urine Mucus 0 SEEN Code Visit Inpatient E&M: 98412 Subs Hosp L2
[2019-03-15 17:48] VITALS: BP 118/90; PULSE 102; RESP 18; TEMP 37.2; O2SAT 100
[2019-03-15] MEDS: Senna Tablet 1 TABLET PO (17:53)
[2019-03-15] MEDS: Dicyclomine 10 MG Capsule 20 MG PO (17:53)
[2019-03-15 22:50] VITALS: BP 119/73; PULSE 99; RESP 18; TEMP 36.5; O2SAT 97
[2019-03-15] MEDS: traZODone 50 MG Tablet PO (22:54)
[2019-03-16 02:57] VITALS: BP 110/73; PULSE 105; RESP 16; TEMP 37.2; O2SAT 98
[2019-03-16] MEDS: Buprenorphine HCl 2 MG TAB.SUBL SL ×2 (02:58→09:47)
--- NOTE | 2019-03-16 09:20 | DCINST_ITS ---
- Discharge Diagnoses Current Active Problems: Current Active and Chronic Problems Polysubstance use (Acute) Acute opioid withdrawal (Acute) You will use the following diet at home:: No restrictions Your food should be the consistency of: Regular Your liquids should be the consistency of: Regular/Thin Discharge Activity: - - Stay away from contacts who are users. Follow up with the inpatient facility tomorrow, the sooner the better. Call your doctor if you observe: - - for any concerns Pending Tests on Discharge: none Allergies/Adverse Reactions: Allergies No Known Allergies Allergy (Verified 03/13/19 07:58) Medications to take at Discharge NK 10/16/17 Primary Care Physician: Care Physician,No Primary [Primary Care Provider] - Test Results: Test results from this visit will be discussed in further detail at your follow- up appointment, if applicable. Proposed Discharge Date: 03/16/19
[2019-03-16 09:26] VITALS: BP 121/92; PULSE 123; RESP 16; TEMP 36.4; O2SAT 100
--- NOTE | 2019-03-16 09:26 | DS.PCM_ITS ---
Discharge Date and Diagnosis - Problem List Patient Problems: Active and Suspected Problems Withdrawal from opioids (Acute) Polysubstance use (Acute) Acute opioid withdrawal (Acute) Date of Admission: 03/13/19 Date of Discharge: 03/16/19 - Primary Discharge Diagnosis Active and Suspected Problems Withdrawal from opioids (Acute) Polysubstance use (Acute) - Secondary Discharge Diagnosis Chronic Problems Tobacco dependence (Chronic) Polysubstance abuse (Chronic) Hospital Course and Treatment Imaging Results: Laboratory Tests 03/13/19 03/13/19 03/13/19 Range/Units 11:10 08:15 08:15 WBC (4.4-11.0) K/mm3 RBC (4.6-6.2) M/mm3 Hgb (13.0-16.5) g/dL Hct (40-54) % MCV (80-94) fL MCH (27.0-32.0) pg MCHC (32-36) g/dL RDW Std Deviation (35.1-43.9) fl RDW Coeff of Yung (11.6-14.6) % Plt Count (150-450) K/mm3 MPV (6.2-12.0) fl Immature Gran % (Auto) (0.0-0.9) % Neut % (Auto) (47-70) % Lymph % (Auto) (19-41) % [place] % (Auto) (0-10) % Eos % (Auto) (0-5) % Baso % (Auto) (0-1) % Absolute Neuts (auto) (2.0-7.7) X10^3/uL Absolute Lymphs (auto) (0.83-4.51) X10^3/uL Nucleated RBC % (0-5) % PT 12.7 (11.7-14.9) SECONDS INR 1.0 Sodium (136-145) mmol/L Potassium (3.5-5.1) mmol/L Chloride (98-107) mmol/L Carbon Dioxide (21.0-32.0) mmol/L Anion Gap (5-15) BUN (7-18) mg/dL Creatinine (0.70-1.30) mg/dL Estim Creat Clear Calc ml/min Est GFR (MDRD) Af Amer (>60) mL/min Est GFR (MDRD) Non-Af (>60) mL/min BUN/Creatinine Ratio (10-20) RATIO Glucose (74-106) mg/dL Calcium (8.5-10.1) mg/dL Total Bilirubin (0.20-1.00) mg/dL GGT (15-85) U/L AST (15-37) U/L ALT (16-61) U/L Alkaline Phosphatase (45-117) U/L Total Protein (6.4-8.2) g/dL Albumin (3.2-5.0) g/dL Globulin (2.2-4.2) g/dL Albumin/Globulin Ratio (0.9-2.4) RATIO Lipase 139 (73-393) U/L Urine Color Yellow (Yellow) Urine Clarity Sl. Cloudy (Clear) Urine pH 6.0 (5.0 - 8.0) Ur Specific [place] 1.015 (1.002-1.030) Urine Protein Negative (Negative) mg/dl Urine Glucose (UA) Normal (Normal) mg/dl Urine Ketones Negative (Negative) mg/dl Urine Occult Blood Negative (Negative) /ul Urine Nitrite Negative (Negative) Urine Bilirubin Negative (Negative) mg/dL Urine Urobilinogen Normal (Normal) mg/dl Ur Leukocyte Esterase Negative (Negative) /ul Urine RBC 0 SEEN (0-5) /hpf Urine WBC 0 SEEN (0-5) /hpf Ur Squamous Epith Cells 0 SEEN (0-5) /hpf Calcium Oxalate Crystal 1+ (<or=2+) /hpf Urine Bacteria 1+ (None Seen) /hpf Urine Mucus 0 SEEN (<or=2+) /hpf Urine Opiates Screen (< 300 ng/mL) Urine Methadone Screen (< 300 ng/mL) Ur Barbiturates Screen (< 200 ng/mL) Ur Phencyclidine Scrn (< 25 ng/mL) Ur Amphetamines Screen (<1000 ng/mL) U Methamphetamin-MDMA (< 500 ng/mL) U Benzodiazepines Scrn (< 200 ng/mL) Urine Cocaine Screen (< 300 ng/mL) U Cannabinoids Screen (< 50 ng/mL) Ur Drug Screen Comment Ethyl Alcohol mg/dL 03/13/19 03/13/19 03/13/19 Range/Units 08:15 08:15 08:15 WBC (4.4-11.0) K/mm3 RBC (4.6-6.2) M/mm3 Hgb (13.0-16.5) g/dL Hct (40-54) % MCV (80-94) fL MCH (27.0-32.0) pg MCHC (32-36) g/dL RDW Std Deviation (35.1-43.9) fl RDW Coeff of Yung (11.6-14.6) % Plt Count (150-450) K/mm3 MPV (6.2-12.0) fl Immature Gran % (Auto) (0.0-0.9) % Neut % (Auto) (47-70) % Lymph % (Auto) (19-41) % [place] % (Auto) (0-10) % Eos % (Auto) (0-5) % Baso % (Auto) (0-1) % Absolute Neuts (auto) (2.0-7.7) X10^3/uL Absolute Lymphs (auto) (0.83-4.51) X10^3/uL Nucleated RBC % (0-5) % PT (11.7-14.9) SECONDS INR Sodium (136-145) mmol/L Potassium (3.5-5.1) mmol/L Chloride (98-107) mmol/L Carbon Dioxide (21.0-32.0) mmol/L Anion Gap (5-15) BUN (7-18) mg/dL Creatinine (0.70-1.30) mg/dL Estim Creat Clear Calc ml/min Est GFR (MDRD) Af Amer (>60) mL/min Est GFR (MDRD) Non-Af (>60) mL/min BUN/Creatinine Ratio (10-20) RATIO Glucose (74-106) mg/dL Calcium (8.5-10.1) mg/dL Total Bilirubin (0.20-1.00) mg/dL GGT 21 (15-85) U/L AST (15-37) U/L ALT (16-61) U/L Alkaline Phosphatase (45-117) U/L Total Protein (6.4-8.2) g/dL Albumin (3.2-5.0) g/dL Globulin (2.2-4.2) g/dL Albumin/Globulin Ratio (0.9-2.4) RATIO Lipase (73-393) U/L Urine Color (Yellow) Urine Clarity (Clear) Urine pH (5.0 - 8.0) Ur Specific [place] (1.002-1.030) Urine Protein (Negative) mg/dl Urine Glucose (UA) (Normal) mg/dl Urine Ketones (Negative) mg/dl Urine Occult Blood (Negative) /ul Urine Nitrite (Negative) Urine Bilirubin (Negative) mg/dL Urine Urobilinogen (Normal) mg/dl Ur Leukocyte Esterase (Negative) /ul Urine RBC (0-5) /hpf Urine WBC (0-5) /hpf Ur Squamous Epith Cells (0-5) /hpf Calcium Oxalate Crystal (<or=2+) /hpf Urine Bacteria (None Seen) /hpf Urine Mucus (<or=2+) /hpf Urine Opiates Screen NEGATIVE (< 300 ng/mL) Urine Methadone Screen NEGATIVE (< 300 ng/mL) Ur Barbiturates Screen NEGATIVE (< 200 ng/mL) Ur Phencyclidine Scrn NEGATIVE (< 25 ng/mL) Ur Amphetamines Screen POSITIVE H (<1000 ng/mL) U Methamphetamin-MDMA NEGATIVE (< 500 ng/mL) U Benzodiazepines Scrn NEGATIVE (< 200 ng/mL) Urine Cocaine Screen NEGATIVE (< 300 ng/mL) U Cannabinoids Screen NEGATIVE (< 50 ng/mL) Ur Drug Screen Comment Ethyl Alcohol < 3.0 mg/dL 03/13/19 03/13/19 Range/Units 08:15 08:15 WBC 6.7 (4.4-11.0) K/mm3 RBC 5.17 (4.6-6.2) M/mm3 Hgb 15.3 (13.0-16.5) g/dL Hct 45.6 (40-54) % MCV 88.2 (80-94) fL MCH 29.6 (27.0-32.0) pg MCHC 33.6 (32-36) g/dL RDW Std Deviation 42.8 (35.1-43.9) fl RDW Coeff of Yung 13.2 (11.6-14.6) % Plt Count 363 (150-450) K/mm3 MPV 8.7 (6.2-12.0) fl Immature Gran % (Auto) 0.400 (0.0-0.9) % Neut % (Auto) 55.3 (47-70) % Lymph % (Auto) 35.2 (19-41) % [place] % (Auto) 7.7 (0-10) % Eos % (Auto) 1.0 (0-5) % Baso % (Auto) 0.4 (0-1) % Absolute Neuts (auto) 3.7 (2.0-7.7) X10^3/uL Absolute Lymphs (auto) 2.36 (0.83-4.51) X10^3/uL Nucleated RBC % 0 (0-5) % PT (11.7-14.9) SECONDS INR Sodium 140 (136-145) mmol/L Potassium 3.9 (3.5-5.1) mmol/L Chloride 107 (98-107) mmol/L Carbon Dioxide 28.0 (21.0-32.0) mmol/L Anion Gap 5 (5-15) BUN 8 (7-18) mg/dL Creatinine 0.93 (0.70-1.30) mg/dL Estim Creat Clear Calc 118.08 ml/min Est GFR (MDRD) Af Amer 118 (>60) mL/min Est GFR (MDRD) Non-Af 98 (>60) mL/min BUN/Creatinine Ratio 8.6 L (10-20) RATIO Glucose 108 H (74-106) mg/dL Calcium 8.3 L (8.5-10.1) mg/dL Total Bilirubin 0.50 (0.20-1.00) mg/dL GGT (15-85) U/L AST 30 (15-37) U/L ALT 54 (16-61) U/L Alkaline Phosphatase 133 H (45-117) U/L Total Protein 8.1 (6.4-8.2) g/dL Albumin 3.5 (3.2-5.0) g/dL Globulin 4.6 H (2.2-4.2) g/dL Albumin/Globulin Ratio 0.8 L (0.9-2.4) RATIO Lipase (73-393) U/L Urine Color (Yellow) Urine Clarity (Clear) Urine pH (5.0 - 8.0) Ur Specific [place] (1.002-1.030) Urine Protein (Negative) mg/dl Urine Glucose (UA) (Normal) mg/dl Urine Ketones (Negative) mg/dl Urine Occult Blood (Negative) /ul Urine Nitrite (Negative) Urine Bilirubin (Negative) mg/dL Urine Urobilinogen (Normal) mg/dl Ur Leukocyte Esterase (Negative) /ul Urine RBC (0-5) /hpf Urine WBC (0-5) /hpf Ur Squamous Epith Cells (0-5) /hpf Calcium Oxalate Crystal (<or=2+) /hpf Urine Bacteria (None Seen) /hpf Urine Mucus (<or=2+) /hpf Urine Opiates Screen (< 300 ng/mL) Urine Methadone Screen (< 300 ng/mL) Ur Barbiturates Screen (< 200 ng/mL) Ur Phencyclidine Scrn (< 25 ng/mL) Ur Amphetamines Screen (<1000 ng/mL) U Methamphetamin-MDMA (< 500 ng/mL) U Benzodiazepines Scrn (< 200 ng/mL) Urine Cocaine Screen (< 300 ng/mL) U Cannabinoids Screen (< 50 ng/mL) Ur Drug Screen Comment Ethyl Alcohol mg/dL none Operations: None Procedures: None Summary of Care Provided: The patient is a 33 year old M with a past medical history of polysubstance abuse and tobacco dependence who presented to the emergency department at [facility] on 03/13/2019 requesting inpatient admission for acute opiate withdrawal. He has been using opiates since 25 years of age. He admitted to using approximately 1 g of fentanyl daily for the past 4 years. He also occasionally uses methamphetamine and his drug screen was positive for amphetamines. He had increased anxiety, restlessness and tremors at the time he presented to the emergency department. Drug screen was negative for opiates. He was admitted to the hospital and placed on a buprenorphine taper. His 72 hour admission was uneventful. He is planning on inpt rehab and the gave him phone numbers to call to arrange for a bed. He called 3 places with Pastor Méndez in the room and probably can be placed on Sunday but, will have to make phone calls. He is going to stay with a friend following DC from the hospital. He was discharged on AF with stable VS's Alert and oriented X 3, NAD, appropriate -Clear to auscultation Heart-regular rate and rhythm, no murmurs, normal S1, normal S2, no gallop Abdomen-soft, nontender, nondistended, normal bowel sounds in all 4 quadrants, no guarding with palpation No peripheral edema, pulses are normal in the extremities, capillary refill is less than 3 seconds Skin-no rashes, no breakdown Neuro-cranial nerves II through XII are grossly intact and he has no focal neurologic deficits. No tremors This note was generated with Loctronixation software. It may contain incorrect words, spelling, and punctuation that were not noted in checking the note before signing. [] Patient Problems: Active and Suspected Problems Withdrawal from opioids (Acute) Polysubstance use (Acute) Acute opioid withdrawal (Acute) - Physical Exam Vitals/I&O's: Vital Signs Temp Pulse Resp BP Pulse Ox 99 F 105 H 16 110/73 98 03/16/19 02:57 03/16/19 02:57 03/16/19 02:57 03/16/19 02:57 03/16/19 02:57 Oxygen Delivery Method Room Air Weight: 162 lb 3.2 oz Body Mass Index (BMI) 22.6 Intake and Output for Last 24 Hours 03/14/19 03/15/19 03/16/19 23:59 23:59 23:59 Intake Total 824 / 824 1020 / 1020 200 / 200 Balance 824 / 824 1020 / 1020 200 / 200 Current Medications Acetaminophen (Tylenol) 500 mg PO Q4H PRN PRN PRN Reason: Temp > 100.4 F Last Admin: 03/13/19 10:31 Dose: 500 mg Documented by: Al Hydroxide/Mg Hydroxide (Mylanta Ii) 30 ml PO Q6H PRN PRN PRN Reason: dyspesia Bisacodyl (Dulcolax) 10 mg RECTAL DAILY PRN PRN Reason: Constipation Buprenorphine HCl (Buprenorphine Hcl) 2 mg SL Q12H TYRONE; Taper Stop: 03/16/19 14:59 Last Admin: 03/16/19 02:58 Dose: 2 mg Documented by: Buprenorphine HCl (Buprenorphine Hcl) 2 mg SL X1 ONE Stop: 03/16/19 09:19 Chlordiazepoxide (Librium) 25 mg PO Q6H PRN PRN PRN Reason: Moderate-Severe Anxiety Last Admin: 03/15/19 10:45 Dose: 25 mg Documented by: Clonidine (Catapres) 0.1 mg PO Q2H PRN PRN PRN Reason: Hot/Cold Sweats or Anxiety Dicyclomine HCl (Bentyl) 20 mg PO Q6H PRN PRN PRN Reason: Abdomnial Discomfort Last Admin: 03/15/19 17:53 Dose: 20 mg Documented by: Hydroxyzine HCl (Vistaril Vial) 50 mg IM Q6H PRN PRN PRN Reason: Breakthrough Anxiety Hydroxyzine Pamoate (Vistaril Pamoate Capsule) 50 mg PO Q6H PRN PRN PRN Reason: Mild Anxiety Last Admin: 03/14/19 10:40 Dose: 50 mg Documented by: Ibuprofen (Motrin) 600 mg PO Q8H PRN PRN PRN Reason: Pain Score 1-5/10 Last Admin: 03/14/19 15:16 Dose: 600 mg Documented by: Loperamide HCl (Imodium) 2 - 4 mg PO UD PRN PRN Reason: LOOSE STOOLS Methocarbamol (Methocarbamol) 750 mg PO Q6H PRN PRN PRN Reason: Muscle Aches Nicotine (Nicoderm Cq (Pbkc)) 21 mg TRANSDERM. DAILY [facility] Last Admin: 03/15/19 10:40 Dose: 21 mg Documented by: Ondansetron HCl (Zofran Odt) 4 mg PO Q6H PRN PRN PRN Reason: NAUSEA Pramipexole Dihydrochloride (Mirapex) 0.25 mg PO Q12H PRN PRN PRN Reason: Restless Legs Last Admin: 03/14/19 10:40 Dose: 0.25 mg Documented by: Senna (Senokot) 1 tablet PO QHS PRN PRN Reason: Constipation Last Admin: 03/15/19 17:53 Dose: 1 tablet Documented by: Sodium Chloride () 10 - 40 ml IV UD PRN PRN Reason: SALINE FLUSH Trazodone HCl (Desyrel) 50 mg PO QHS TRYONE Last Admin: 03/15/19 22:54 Dose: 50 mg Documented by: Discharge Activity: - - Stay away from contacts who are users. Follow up with the inpatient facility tomorrow, the sooner the better. Call your doctor if you observe: - - for any concerns Home Medications: Medications to take at Discharge NK 10/16/17 Primary Care Physician: Care Physician,No Primary [Primary Care Provider] - Minutes spent on discharge:: 30 Patient Condition:: Good Medical Necessity - Tobacco Use Smoking Status: Current every day smoker Tobacco Use: Cigarettes Meaningful Use Info Meaningful Use Diagnoses (Choose all that apply): None applicable Code Visit Inpatient E&M: 72675 Disch Hosp
== END 2019-03-16 10:01 | disposition home or self-care (01) | DRG 773 ==
LOC: ED 08:38 → MS3 03-14 06:23
PROVIDERS: Admitting Provider Internal Medicine; Emergency Provider Emergency Medicine; Visit Provider Internal Medicine
DX: F11.23 Opioid dependence with withdrawal (principal); F15.20 Other stimulant dependence, uncomplicated; F17.210 Nicotine dependence, cigarettes, uncomplicated
CPT/HCPCS: 80053; 80307; 80320; 81001; 82977; 83690; 85025; 85610; 93005; 96374; 99218; 99284; A4216; G0378; G0480; J2405